=== PATIENT | male | born 1950 | race Caucasian/White ===

== ENCOUNTER → 2021-06-09 | Outpatient (CLI) | payer OTHER ==
[~2021-06-09] MED LIST: ACTOS30 MG PO; ASPIRIN CHEWABL81 MG PO; ATORVASTATIN CA20 MG PO; FENOFIBRATE160 MG PO; FLOMAX0.4 MG PO; GLIMEPIRIDE4 MG PO; IPRAT-ALBUT 0.5-3 ML NEB; LOPRESSOR 25 MG25 MG PO; PERCOCET 10-321 EACH PO; PERCOCET 5-3251 EACH PO; PLAVIX 75 MG TA75 MG PO; PRAVACHOL40 MG PO; PROTONIX 40 MG40 M1 PO; RANEXA500 MG PO; TENORMIN 25 MG25 MG PO; ZOFRAN4 MG PO
== END ==
LOC: HEART 5 08:22
DX: R94.31 Abnormal electrocardiogram [ECG] [EKG] (principal); R53.83 Other fatigue; I25.118 Atherosclerotic heart disease of native coronary artery with other forms of angina pectoris
CPT/HCPCS: 78452; 93306; A9502; J2785